=== PATIENT | male | born 1985 | race Caucasian/White ===

== ENCOUNTER 2018-04-10 01:23 | Emergency (ER) | payer SELFPAY ==
--- NOTE | 2018-04-10 02:51 | ED ---
Lower Extremity - HPI Summary HPI Summary: This patient is a 32 year old M presenting to [facility] accompanied by with a chief complaint of L fourth and fifth toes pain status post fall that occurred [employer]. The patient rates the pain 7/10 in severity. Symptoms aggravated by ambulation. Symptoms alleviated by nothing. Patient reports big toe pain ( lasting 3 days). - History of Current Complaint Chief Complaint: EDExtremityLower Stated Complaint: LT FOOT INJURY Time Seen by Provider: 04/10/18 02:45 Hx Obtained From: Patient Mechanism Of Injury: Fall From A Standing Position Onset of Pain: Immediate Onset/Duration: Hours Severity Initially: Moderate Severity Currently: Moderate Pain Intensity: 7 Pain Scale Used: 0-10 Numeric Timing: Constant Location: Is Discrete @ - L toes Aggravating Factor(s): Ambulation Alleviating Factor(s): Nothing - Allergies/Home Medications Allergies/Adverse Reactions: Allergies Allergy/AdvReac Type Severity Reaction Status Date / Time No Known Allergies Allergy Verified 04/10/18 01:32 Home Medications: Home Medications NK [No Home Medications Reported] 04/10/18 [History Confirmed 04/10/18] PMH/Surg Hx/FS Hx/Imm Hx Previously Healthy: Yes Opthamlomology History: Denies: Hx Legally Blind EENT History: Denies: Hx Deafness Infectious Disease History: No Infectious Disease History: Denies: Traveled Outside the [place] in Last 30 Days - Family History Known Family History: Negative: Cardiac Disease, Diabetes - Social History Occupation: Unemployed Lives: With Family Alcohol Use: Occasionally Hx Substance Use: No Substance Use Type: Reports: None Hx Tobacco Use: No Smoking Status (MU): Unknown if Ever Smoked Review of Systems Negative: Fever Positive: Other - Positive big toe pain, L fourth toe pain, and L fifth toe pain All Other Systems Reviewed And Are Negative: Yes Physical Exam - Summary Physical Exam Summary: Appearance: Well-appearing, Well-nourished, lying in bed comfortably Skin: Warm, dry, no obvious rash Eyes: sclera anicteric, no conjunctival pallor ENT: mucous membranes moist, pharynx appears normal Neck: Supple, nontender Respiratory: Clear to auscultation, no signs of respiratory distress Cardiovascular: Normal S1, S2. No murmurs. Normal distal pulses in tibial and radial bilaterally. Abdomen: Soft, nontender, normal active bowel sounds present Musculoskeletal: Little bit of tenderness on the fourth and fifth toes. No tenderness on the end of the fifth metatarsal. Tenderness on the lateral malleolus. No swelling, bruising or skin tears., Strength/ROM Intact Neurological: A&Ox3, awake and alert, mentation is normal, speech is fluent and appropriate Psychiatric: affect is normal, does not appear anxious or depressed Triage Information Reviewed: Yes Vital Signs On Initial Exam: Initial Vitals Temp Pulse Resp BP Pulse Ox 98.5 F 93 17 127/92 96 04/10/18 01:32 04/10/18 01:32 04/10/18 01:32 04/10/18 01:32 04/10/18 01:32 Vital Signs Reviewed: Yes Diagnostics - Vital Signs Vital Signs Temp Pulse Resp BP Pulse Ox 04/10/18 01:32 98.5 F 93 17 127/92 96 - Laboratory Lab Statement: Any lab studies that have been ordered have been reviewed, and results considered in the medical decision making process. - Radiology Toe XR Radiology Interpretation Completed By: ED Physician - Toe XR reveals, per ED physician, no fracture. Ankle XR Radiology Interpretation Completed By: ED Physician - Ankle XR reveals, per ED physician, no fracture. Lower Extremity Course/Dx - Diagnoses Provider Diagnoses: Ankle sprain Discharge - Sign-Out/Discharge Documenting (check all that apply): Patient Departure - Discharge Plan Condition: Good Disposition: HOME Patient Education Materials: Ankle Sprain (ED) Referrals: Klever Arenas MD [Medical Doctor] - No Primary Care Phys,NOPCP [Primary Care Provider] - - Billing Disposition and Condition Condition: GOOD Disposition: Home
[2018-04-10 03:59] VITALS: BP 113/78
--- NOTE | 2018-04-10 11:41 | RAD ---
INDICATION: Left ankle and left fifth toe pain COMPARISON: None. TECHNIQUE: 3 views of the left ankle and 5 views of the left small toe were obtained. FINDINGS: The well corticated bones exhibit normal alignment. Joint spaces appear maintained. No fracture is seen. IMPRESSION: NORMAL ANKLE AND LEFT FIFTH TOE RADIOGRAPH. If the patient's symptoms persist, follow-up imaging is recommended. R0
== END 2018-04-10 03:59 | disposition home or self-care (01) ==
LOC: ED 01:23
DX: S93.402A Sprain of unspecified ligament of left ankle, initial encounter (principal); M79.675 Pain in left toe(s); W19.XXXA Unspecified fall, initial encounter; Y92.9 Unspecified place or not applicable
CPT/HCPCS: 99282

== ENCOUNTER 2018-04-14 00:47 | Emergency (ER) | payer SELFPAY ==
[2018-04-14] MEDS ORDERED: Ketorolac INJ* 30 MG/ML 1 ML VIAL IM ONE (02:22)
[2018-04-14] MEDS ORDERED: Amoxicillin/Clavulanate TAB* 500 MG PO ONE (02:22)
[2018-04-14] MEDS ORDERED: predniSONE TAB* 20 MG PO ONE (02:22)
[2018-04-14] MEDS ORDERED: diPHENhydraMINE PO* 25 MG PO ONE (02:22)
--- NOTE | 2018-04-14 02:24 | ED ---
Skin Complaint - HPI Summary HPI Summary: 32-year-old male presents with rash for the past 2 days. has similar rash. He states it started on his left hand. Has since spread. He states he believes he got bite by something. He denies any environmental exposures. He just moved here couple days ago. He denies rash before. No new products or soaps. He has no medical conditions. No allergies to medication. States the rash is itchy. He states he gets sharp burning pain from the rash. He also states that he developed a rash above his left eyelid. He states that the swelling is increasing in his eyelid. - History of Current Complaint Chief Complaint: EDRashSkinAbscess Time Seen by Provider: 04/14/18 01:53 Stated Complaint: RASH/BITES Pain Intensity: 2 - Allergy/Home Medications Allergies/Adverse Reactions: Allergies Allergy/AdvReac Type Severity Reaction Status Date / Time No Known Allergies Allergy Verified 04/14/18 00:50 PMH/Surg Hx/FS Hx/Imm Hx Endocrine/Hematology History: Denies: Hx Anticoagulant Therapy Respiratory History: Denies: Hx Asthma Sensory History: Denies: Hx Legally Blind, Hx Deafness Opthamlomology History: Denies: Hx Legally Blind - Immunization History Immunizations Up to Date: No Infectious Disease History: No Infectious Disease History: Denies: Traveled Outside the [place] in Last 30 Days - Family History Known Family History: Negative: Cardiac Disease, Diabetes - Social History Alcohol Use: Occasionally Hx Substance Use: No Substance Use Type: Reports: None Hx Tobacco Use: No Smoking Status (MU): Light Every Day Tobacco Smoker Review of Systems Negative: Fever Negative: Chest Pain Negative: Shortness Of Breath Positive: Rash All Other Systems Reviewed And Are Negative: Yes Physical Exam Triage Information Reviewed: Yes Vital Signs On Initial Exam: Initial Vitals Temp Pulse Resp BP Pulse Ox 99 F 63 16 134/87 98 04/14/18 00:50 04/14/18 00:50 04/14/18 00:50 04/14/18 00:50 04/14/18 00:50 Vital Signs Reviewed: Yes Appearance: Positive: Well-Appearing Skin: Positive: Warm, Dry, Other - erythema with blistering rash across arms and legs, erythema above left eye Head/Face: Positive: Normal Head/Face Inspection Eyes: Positive: Normal, Conjunctiva Clear ENT: Positive: Normal ENT inspection, Pharynx normal, TMs normal Respiratory/Lung Sounds: Positive: Clear to Auscultation, Breath Sounds Present Cardiovascular: Positive: Normal, RRR Musculoskeletal: Positive: Normal Neurological: Positive: Normal Psychiatric: Positive: Normal Diagnostics - Vital Signs Vital Signs Temp Pulse Resp BP Pulse Ox 04/14/18 00:50 99 F 63 16 134/87 98 - Laboratory Lab Statement: Any lab studies that have been ordered have been reviewed, and results considered in the medical decision making process. Course/Dx - Course Course Of Treatment: 32-year-old male presents with rash for the past 2 days. has similar rash. He states it started on his left hand. Has since spread. He states he believes he got bite by something. He denies any environmental exposures. He just moved here couple days ago. He denies rash before. No new products or soaps. He has no medical conditions. No allergies to medication. States the rash is itchy. He states he gets sharp burning pain from the rash. He also states that he developed a rash above his left eyelid. He states that the swelling is increasing in his eyelid. On exam his erythematous rash with blistering on extremities. Also has erythema above right eye. Does not appear like a preseptal cellulitis but will place on Augmentin to prevent such. Discuss case with Dr. Merida who saw patient and says to. place Patient on a steroid. Told to follow-up up with derm. Patient understands and agrees with plan. - Differential Diagnoses - Skin Complaint Differential Diagnoses: Abscess, Contact Dermatitis, Poison [place], Poison [place] - Diagnoses Provider Diagnoses: Rash Discharge - Sign-Out/Discharge Documenting (check all that apply): Patient Departure - Discharge Plan Condition: Good Disposition: HOME Prescriptions: Amoxicillin/Clavulanate TAB* [Augmentin TAB 500 mg*] 500 mg PO BID #19 tab predniSONE TAB* [Deltasone TAB*] 50 mg PO DAILY #4 tab Patient Education Materials: Contact Dermatitis (ED) Referrals: No Primary Care Phys,NOPCP [Primary Care Provider] - Shyam Lozano MD [Medical Doctor] - Additional Instructions: Take Benadryl every 6 hours Can apply cream with hydrocortisone to area for itchy Take ibuprofen every 6 hours for pain Take steroid once a day for 4 more days Take augmentin twice a day for 10 days Return to ED if develop any new or worsening symptoms - Billing Disposition and Condition Condition: GOOD Disposition: Home
[2018-04-14 03:05] LABS: ABS Basophils 0 10^3/ul (0-0.2); ABS Eosinophils 0.7 10^3/ul (0-0.6); ABS Lymphocytes 2.6 10^3/ul (1.0-4.8); ABS Monocytes 0.6 10^3/ul (0-0.8); ABS Neutrophils 5.1 10^3/ul (1.5-7.7); ABS Nucleated RBC 0 10^3/ul; Eosinophil % 7.3 % (0-6); Hematocrit 45 % (42-52); Lymphocyte % 29.2 % (25-47); Mean Corpuscular HGB Conc 34 g/dl (31-36); Mean Corpuscular Hemoglobin 31 pg (27-31); Mean Corpuscular Volume 91 fL (80-94); Mean Platelet Volume 8.7 um3 (7.4-10.4); Nucleated Red Blood Cells % 0; Platelet Count 211 10^3/ul (150-450); Red Blood Count 4.92 10^6/ul (4.00-5.40); Red Cell Distribution Width 14 % (10.5-15)
[2018-04-14 03:10] VITALS: BP 135/75
== END 2018-04-14 03:09 | disposition home or self-care (01) ==
LOC: ED 00:47
DX: R21 Rash and other nonspecific skin eruption (principal); F17.200 Nicotine dependence, unspecified, uncomplicated
CPT/HCPCS: 36415; 85025; 85652; 86140; 86703; 96372; 99282; A9270-GY; J1885; J7512

== ENCOUNTER 2018-05-21 22:26 | Emergency (ER) | payer MEDICAID ==
--- NOTE | 2018-05-21 23:00 | ED ---
Lower Extremity - HPI Summary HPI Summary: 32 year old M BIB EMS to [facility] complains of left foot pain s/p jumping off approx 8 foot high fence and landing on his left foot at 21:00 today. The patient rates the pain 7/10 in severity. Symptoms aggravated by movement. Symptoms alleviated by nothing. He complains of left ankle pain. Patient denies chest pain, neck pain, and abdominal pain. - History of Current Complaint Chief Complaint: EDExtremityLower Stated Complaint: LT FOOT INJURY/PAIN Time Seen by Provider: 05/21/18 22:33 Hx Obtained From: Patient Mechanism Of Injury: Other - jumping off approx 8 foot fence Severity Currently: Moderate Pain Intensity: 7 Pain Scale Used: 0-10 Numeric Timing: Constant Associated Signs And Symptoms: Positive: Negative - chest pain, neck pain, and abdominal pain., Other - left ankle pain Aggravating Factor(s): Movement Alleviating Factor(s): Nothing - Allergies/Home Medications Allergies/Adverse Reactions: Allergies Allergy/AdvReac Type Severity Reaction Status Date / Time No Known Allergies Allergy Verified 04/14/18 00:50 Home Medications: Home Medications NK [No Home Medications Reported] 05/21/18 [History Confirmed 05/21/18] PMH/Surg Hx/FS Hx/Imm Hx Previously Healthy: No Endocrine/Hematology History: Denies: Hx Anticoagulant Therapy Respiratory History: Denies: Hx Asthma Sensory History: Denies: Hx Legally Blind, Hx Deafness Opthamlomology History: Denies: Hx Legally Blind - Surgical History Surgery Procedure, Year, and Place: none Infectious Disease History: No Infectious Disease History: Denies: Traveled Outside the [place] in Last 30 Days - Family History Known Family History: Negative: Cardiac Disease, Diabetes - Social History Alcohol Use: Occasionally Hx Substance Use: No Substance Use Type: Reports: None Hx Tobacco Use: Yes Smoking Status (MU): Light Every Day Tobacco Smoker Review of Systems Negative: Chest Pain Negative: Abdominal Pain Musculoskeletal: Negative - neck pain Positive: Other - left foot pain, left ankle pain All Other Systems Reviewed And Are Negative: Yes Physical Exam - Summary Physical Exam Summary: Appearance: Well-appearing, Well-nourished, lying in bed comfortably Skin: Warm, dry, no obvious rash Eyes: sclera anicteric, no conjunctival pallor ENT: mucous membranes moist, pharynx appears normal Neck: Supple, nontender Respiratory: Clear to auscultation, no signs of respiratory distress Cardiovascular: Normal S1, S2. No murmurs. Normal distal pulses in tibial and radial bilaterally. Abdomen: Soft, nontender, normal active bowel sounds present Musculoskeletal: The left foot has marked tenderness on compression of the heel. The left ankle is normal upon applying pressure, there is no tenderness or swelling. Neurological: A&Ox3, awake and alert, mentation is normal, speech is fluent and appropriate Psychiatric: affect is normal, does not appear anxious or depressed Triage Information Reviewed: Yes Vital Signs On Initial Exam: Initial Vitals Temp Pulse Resp BP Pulse Ox 98.7 F 99 15 130/96 98 05/21/18 22:27 05/21/18 22:27 05/21/18 22:27 05/21/18 22:27 05/21/18 22:27 Vital Signs Reviewed: Yes Diagnostics - Vital Signs Vital Signs Temp Pulse Resp BP Pulse Ox 05/21/18 22:27 98.7 F 99 15 130/96 98 - Laboratory Lab Statement: Any lab studies that have been ordered have been reviewed, and results considered in the medical decision making process. - Radiology Foot Radiology Interpretation Completed By: ED Physician - Normal x-ray. Pending official report. Ankle Radiology Interpretation Completed By: ED Physician - Normal x-ray. Pending official report. Heel Radiology Interpretation Completed By: ED Physician - Normal x-ray. Pending official report. Lower Extremity Course/Dx - Diagnoses Provider Diagnoses: Foot sprain Discharge - Sign-Out/Discharge Documenting (check all that apply): Patient Departure - discharge - Discharge Plan Condition: Good Disposition: HOME Patient Education Materials: Foot Sprain (ED) Referrals: [facility] PHYSICIAN REFERRAL [Outside] Klever Arenas MD [Medical Doctor] - If Needed - Billing Disposition and Condition Condition: GOOD Disposition: Home - Attestation Statements Document Initiated by Scribe: Yes Documenting Scribe: Jimena Denny Provider For Whom Ranulfo is Documenting (Include Credential): Jose Bruner MD Scribe Attestation: Jimena Mancilla, scribed for Jose Bruner MD on 05/23/18 at 0125. Scribe Documentation Reviewed: Yes Provider Attestation: The documentation as recorded by the scribJimena hadley accurately reflects the service I personally performed and the decisions made by me, Jose Bruner MD
[2018-05-21] MEDS ORDERED: oxyCODONE/Acetamin 5/325 MG* TAB PO ONE (23:18)
[2018-05-22 01:23] VITALS: BP 124/88
--- NOTE | 2018-05-22 10:04 | RAD ---
Indication: LEFT ankle pain post fall. Comparison: April 10, 2018 Technique: AP, mortise, and lateral views LEFT ankle. Report: Negative for fracture or malalignment. Minimal soft tissue swelling over the lateral malleolus. Accessory os peroneum ossicle noted. IMPRESSION: #. Minimal lateral soft tissue swelling. Negative for fracture or malalignment. R1
--- NOTE | 2018-05-22 10:21 | RAD ---
Indication: LEFT foot pain following jumping injury. Comparison: April 10, 2018 LEFT fifth toe radiographs. Technique: AP, lateral, and oblique views LEFT foot. Report: Negative for fracture or malalignment. Normal variant os tibiale externum accessory ossicle. Unremarkable soft tissue contours. IMPRESSION: #. Negative radiographic exam of the LEFT foot. R0
--- NOTE | 2018-05-22 10:25 | RAD ---
Indication: LEFT heel pain post fall. Comparison: Foot exam of the same date. Technique: Lateral and axial views of the calcaneus Report: No cortical disruption or suspicious trabecular irregularity to suggest fracture. Normal articular alignment. Mild soft tissue swelling at the heel fat pad. R0
== END 2018-05-22 02:30 | disposition home or self-care (01) ==
LOC: ED 22:26
DX: S93.602A Unspecified sprain of left foot, initial encounter (principal); Y93.39 Activity, other involving climbing, rappelling and jumping off; Y92.9 Unspecified place or not applicable; F17.200 Nicotine dependence, unspecified, uncomplicated
CPT/HCPCS: 99283; A9270-GY

== ENCOUNTER 2019-04-15 20:49 | Emergency (ER) | payer MEDICAID, OTHER ==
[2019-04-15] MEDS ORDERED: diPHENhydraMINE IV* 50 MG/ML 1 ml VIAL (BENADRYL) ONE (20:55)
[2019-04-15] MEDS ORDERED: Haloperidol INJ IV/IM* 5 MG/ML AMP ONE (20:55)
[2019-04-15] MEDS ORDERED: LORazepam INJ* 2 MG/ML 1 ML VIAL ONE (20:55)
--- NOTE | 2019-04-15 21:03 | ED ---
Shortness of Breath - HPI Summary HPI Summary: A 33 y/o male presents to [facility] with a chief complaint of SOB tonight, which has now resolved per EMS. He has a DVT and a Hx of asthma. Per EMS, he was hyperventilating and said that his upper lips and fingers were tingling before he "passed out". When he woke up he felt fine, was breathing normally, his BP and HR came back down and his O2 Sat was 98. However in the ED he is very agitated, cursing and insulting all of the staff. He admits to EtOH use. - History of Current Complaint Hx Obtained From: Patient, EMS Onset/Duration: Sudden Onset, Lasting Hours, Resolved Timing: Constant Current Severity: None Dyspnea At: Rest Aggravating Factors: Nothing Alleviating Factors: Other - after he "passed out" he had no SOB Associated Signs & Symptoms: Negative - Allergy/Home Medications Allergies/Adverse Reactions: Allergies Allergy/AdvReac Type Severity Reaction Status Date / Time No Known Allergies Allergy Verified 04/14/18 00:50 PMH/Surg Hx/FS Hx/Imm Hx Endocrine/Hematology History: Denies: Hx Anticoagulant Therapy Respiratory History: Reports: Hx Asthma Sensory History: Denies: Hx Legally Blind, Hx Deafness Opthamlomology History: Denies: Hx Legally Blind - Surgical History Surgery Procedure, Year, and Place: none - Family History Known Family History: Negative: Cardiac Disease, Diabetes - Social History Alcohol Use: Occasionally Hx Substance Use: No Substance Use Type: Reports: None Hx Tobacco Use: Yes Smoking Status (MU): Light Every Day Tobacco Smoker Review of Systems Negative: Fever Positive: Shortness Of Breath - [employer] Neurological: Other - positive: "passed out" [employer] Positive: Paresthesia - upper lips and fingers [employer] Psychological: Other - positive: agitated, cursing and insulting staff All Other Systems Reviewed And Are Negative: Yes Physical Exam - Summary Physical Exam Summary: GENERAL: Patient is a well-developed and nourished M who is lying comfortable in the stretcher. Patient is not in any acute respiratory distress. HEAD AND FACE: Normocephalic EYES: PERRLA, EOMI x 2. EARS: Hearing grossly intact. MOUTH: Oropharynx within normal limits. NECK: Supple, trachea is midline, no adenopathy, no JVD, no carotid bruit. CHEST: Symmetric, no tenderness at palpation LUNGS: Clear to auscultation bilaterally. No wheezing or crackles. CVS: Regular rate and rhythm, S1 and S2 present, no murmurs or gallops appreciated. ABDOMEN: Soft, non-tender. Bowel sounds are normal. No abnormal abdominal pulsations. EXTREMITIES: Full ROM in all major joints, no edema, no cyanosis or clubbing. NEURO: Alert and oriented x 3. No acute neurological deficits. Speech is normal and follows commands. SKIN: Dry and warm Triage Information Reviewed: Yes Vital Signs Reviewed: Yes Diagnostics - Laboratory Result Diagrams: 04/15/19 21:45 04/15/19 21:45 Lab Statement: Any lab studies that have been ordered have been reviewed, and results considered in the medical decision making process. - EKG 21:22 Cardiac Rate: NL - 88 bpm EKG Rhythm: Sinus Rhythm Summary of EKG Findings: EKG at 21:22 showed NSR at 88 bpm, prolonged SD. Re-Evaluation - Re-Evaluation First Eval Re-Evaluation Time: 21:12 Change: Unchanged Comment: Pt is still agitated. Course/Dx - Course Course Of Treatment: A 33 y/o male presents to [facility] with a chief complaint of SOB tonight, which has now resolved per EMS. However in the ED he is very agitated, cursing and insulting all of the staff. B52 will be required due to the patient being combative. EKG at 21:22 showed NSR at 88 bpm, prolonged SD. The patient will be signed out from Dr. Mclaughlin to Dr. Nolen at 22:00 04/15/19 pending workup including labs and chest CTA. - Diagnoses Provider Diagnoses: Alcohol intoxication Discharge - Sign-Out/Discharge Documenting (check all that apply): Sign-Out Patient Signing out patient TO: Earnest Nolen - pending further workup Patient Received Moderate/Deep Sedation with Procedure: No - Discharge Plan Condition: Stable Disposition: HOME Patient Education Materials: Alcohol Intoxication (ED) Referrals: [facility] [Outside] - 3 Days Additional Instructions: RETURN TO ED FOR ANY NEW OR WORSENING SYMPTOMS. FOLLOW UP WITH YOUR PRIMARY CARE PHYSICIAN WITHIN THREE DAYS. - Billing Disposition and Condition Condition: STABLE Disposition: Home - Attestation Statements Document Initiated by Scribe: Yes Documenting Scribe: Doron Smith Provider For Whom Scribe is Documenting (Include Credential): Earle Mclaughlin MD Scribe Attestation: I, Doron Smith, scribed for Earle Mclaughlin MD on 04/16/19 at 1111. Scribe Documentation Reviewed: Yes Provider Attestation: The documentation as recorded by the scribe, Doron Smith accurately reflects the service I personally performed and the decisions made by me, Moody Mclaughlin MD Status of Scribe Document: Viewed
[2019-04-15] MEDS ORDERED: NS 0.9% 1000 ML** 1,000 ML IV ONE (21:04)
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
[2019-04-15 22:05] LABS: ABS Basophils 0.1 10^3/ul (0-0.2); ABS Eosinophils 0.4 10^3/ul (0-0.6); ABS Lymphocytes 2.1 10^3/ul (1.0-4.8); ABS Monocytes 0.3 10^3/ul (0-0.8); ABS Neutrophils 2.2 10^3/ul (1.5-7.7); Eosinophil % 8.3 %; Hematocrit 40 % (42-52); Hemoglobin 13.5 g/dL (14.0-18.0); Lymphocyte % 41.3 %; Mean Corpuscular HGB Conc 34 g/dL (31-36); Mean Corpuscular Hemoglobin 31 pg (27-31); Mean Corpuscular Volume 91 fL (80-94); Mean Platelet Volume 8.8 fL (7.4-10.4); Nucleated Red Blood Cells % 0.1; Platelet Count 194 10^3/uL (150-450); Red Blood Count 4.38 10^6 /uL (4.18-5.48); Red Cell Distribution Width 14 % (10-15); White Blood Count 5.2 10^3/uL (3.5-10.8)
--- NOTE | 2019-04-15 22:05 | ED ---
Progress - Progress Note Progress Note: Pt is signed out from Dr. Mclaughlin to Dr. Nolen pending disposition, awaiting labs , chest CTA. CTA CHEST/THORAX IMPRESSION: No acute findings. THIS REPORT WAS REVIEWED BY DR. NOLEN. 0224 - Patient is more calm and cooperative. He is stable for discharge and will be discharged to home with PCP follow up. Re-Evaluation - Re-Evaluation First Eval Re-Evaluation Time: 21:12 Change: Unchanged Comment: Pt is still agitated. Course/Dx - Course Course Of Treatment: Pt is signed out from Dr. Mclaughlin to Dr. Nolen pending disposition, awaiting labs, chest CTA. CTA CHEST/THORAX IMPRESSION: No acute findings. THIS REPORT WAS REVIEWED BY DR. RAMIREZ 0224 - Patient is more calm and cooperative. He is stable for discharge and will be discharged to home with PCP follow up. - Diagnoses Provider Diagnoses: Alcohol intoxication Discharge - Sign-Out/Discharge Documenting (check all that apply): Patient Departure - discharge Patient Received Moderate/Deep Sedation with Procedure: No - Discharge Plan Condition: Stable Disposition: HOME Patient Education Materials: Alcohol Intoxication (ED) Referrals: [facility] [Outside] - 3 Days Additional Instructions: RETURN TO ED FOR ANY NEW OR WORSENING SYMPTOMS. FOLLOW UP WITH YOUR PRIMARY CARE PHYSICIAN WITHIN THREE DAYS. - Attestation Statements Document Initiated by Scribe: Yes Documenting Scribe: LUCINA GILLIAM Provider For Whom Ranulfo is Documenting (Include Credential): ALPESH NOLEN MD Scribe Attestation: LUCINA Mancilla, scribed for ALPESH NOLEN MD on 04/16/19 at 0243. Status of Scribe Document: Ready
[2019-04-15 22:13] LABS: Activated Partial Thrombo Time 35.4 seconds (26.0-38.0); INR 0.94 (0.82-1.09)
[2019-04-15 22:21] LABS: Albumin 3.9 g/dL (3.2-5.2); Albumin/Globulin Ratio 1.6 (1-3); BUN/Creatinine Ratio 6.3 (8-20); EGFR African American 108.5 (>60); EGFR Non-African American 89.7 (>60); Globulin 2.4 g/dL (2-4); Magnesium 2.2 mg/dL (1.9-2.7); Potassium 3.7 mmol/L (3.5-5.0); Total Bilirubin 0.3 mg/dL (0.2-1.0); Total Protein 6.3 g/dL (6.4-8.9)
[2019-04-15] MEDS ORDERED: Iohexol 350* (CONTRAST) 500 ML MDV IV ONE (22:57)
[2019-04-16 03:10] VITALS: BP 104/52
== END 2019-04-16 03:18 | disposition home or self-care (01) ==
LOC: ED 20:49
DX: F10.929 Alcohol use, unspecified with intoxication, unspecified (principal); J45.909 Unspecified asthma, uncomplicated; F17.210 Nicotine dependence, cigarettes, uncomplicated
CPT/HCPCS: 36415; 71275; 80053; 80320; 83605; 83735; 83880; 84484; 85025; 85610; 85730; 93005; 96360; 96361; 99285; G0480; J1200; J1630; J2060; Q9967

== ENCOUNTER 2019-06-24 17:33 | Emergency (ER) | payer OTHER ==
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
[2019-06-24 19:37] VITALS: BP 130/95
[2019-06-24] MEDS ORDERED: Ibuprofen TAB* 600 MG PO ONE (19:52)
== END 2019-06-24 19:36 | disposition home or self-care (01) ==
LOC: ED 17:33
DX: S09.90XA Unspecified injury of head, initial encounter (principal); S09.93XA Unspecified injury of face, initial encounter; S89.91XA Unspecified injury of right lower leg, initial encounter; M25.511 Pain in right shoulder; V19.9XXA Pedal cyclist (driver) (passenger) injured in unspecified traffic accident, initial encounter; Y93.55 Activity, bike riding; Y92.9 Unspecified place or not applicable; J45.909 Unspecified asthma, uncomplicated; F17.200 Nicotine dependence, unspecified, uncomplicated; Z79.899 Other long term (current) drug therapy
CPT/HCPCS: 70450; 70486; 72125; 99282; A9270-GY